=== PATIENT | female | born 1945 | race Asian ===

== ENCOUNTER 2018-11-27 06:12 | Day surgery (SDC) | payer OTHER ==
[~2018-11-27] VITALS: Ht 152.4 cm; Wt 54.1 kg
[~2018-11-27 06:12] MED LIST: AMLO-218 PO; ATOR-2 PO; CLOP75TA27 PO; LOSA100T3 PO
[2018-11-27 08:33] VITALS: Ht 152.4 cm; Wt 54.1 kg
[2018-11-27] MEDS ORDERED: tamsulosin PO (08:52)
[2018-11-27] MEDS ORDERED: gabapentin PO (08:52)
--- NOTE | 2018-11-27 09:11 | PREAC ---
Date/Time of Note Date/Time of Note DATE: 11/27/18 TIME: 09:09 Anesthesia Eval and Record Evaluation Time Pre-Procedure Interview DATE: 11/27/18 TIME: 09:09 Age 73 Sex female NPO: 8 hrs Preoperative diagnosis rectal bleeding Planned procedure colonoscopy Past Medical History Past Medical History: Includes Cardio: HTN Neuro: Other (aneurysms/p surgery) Surgery & Anesthesia Issues No known issue Meds Anticoagulation: No Beta Mehdi within 24 hr: No Reason Beta Mehdi not given: Pt. not on B-Mehdi Reported Medications [tamsulosin] No Conflict Check, PO DAILY 11/27/18 [gabapentin] No Conflict Check, PO DAILY 11/27/18 Amlodipine Besylate* (Norvasc*) 10 Mg Tablet, 10 MG PO DAILY, TAB 07/23/16 Losartan Potassium* (Cozaar*) 100 Mg Tablet, 100 MG PO DAILY, #30 TAB 07/23/16 Atorvastatin* (Atorvastatin*) 80 Mg Tablet, 80 MG PO QHS, #30 TAB 07/23/16 Discontinued Reported Medications Clopidogrel Bisulfate (Clopidogrel) 75 Mg Tablet, 75 MG PO DAILY, #30 TAB 07/23/16 Meds reviewed: Yes Allergies Coded Allergies: No Known Allergy (Unverified , 11/27/18) Allergies Reviewed: Yes Labs/Studies Labs Reviewed: Reviewed by anesthesiologist test: N/A Studies: ECG (sr), CXR (n/a) Pre-procedure Exam Airway: Adequate mouth opening Mallampati: Mallampati I Teeth: Abnormal (denture) Lung: Normal Heart: Normal ASA Physical Status ASA physical status: 2 Emergency: None Planned Anesthetic General/MAC: MAC Planned Pain Management Parenteral pain med Pre-operative Attestations Prior to commencing anesthesia and surgery, the patient was re-evaluated, there was verification of: *The patient's identity *The results of appropriate recent lab work and preoperative vital signs *The above evaluation not changing prior to induction *Anesthetic plan, risk benefits, alternative and complications discussed with patient/family; questions answered; patient/family understands, accepts and wishes to proceed. CATIE MELISSA MD Nov 27, 2018 09:11
[2018-11-27] MEDS ORDERED: FENTAnyl 50 MCG/ML VIAL ONE (09:13)
[2018-11-27] MEDS ORDERED: PROPOFOL 20 ML ONE (09:13)
[2018-11-27 09:28] VITALS: BP 166/72; PULSE 65; RESP 24
[2018-11-27] MEDS ORDERED: hydrALAzine 20 MG INJ IV PRN (09:30)
[2018-11-27] MEDS ORDERED: LABETALOL HCL 20MG INJ IV PRN (09:30)
[2018-11-27] MEDS ORDERED: ONDANSETRON 4 MG INJ IV PRN (09:30)
[2018-11-27 10:16] VITALS: BP 132/58; PULSE 58; RESP 12
--- NOTE | 2018-11-27 18:20 | PAC ---
Date/Time of Note Date/Time of Note DATE: 11/27/18 TIME: 18:20 Post-Anesthesia Notes Post-Anesthesia Note Last documented vital signs Vital Signs Date Temp Pulse Resp B/P (MAP) Pulse Ox O2 O2 Flow FiO2 Time Delivery Rate 11/27/18 97.5 58 12 132/58 100 Room Air 10:16 (82) 11/27/18 97.3 09:28 Activity: WNL Respiratory function: WNL Cardiovascular function: WNL Mental status: Baseline Pain reasonably controlled: Yes Hydration appropriate: Yes Nausea/Vomiting absent: No CATIE MELISSA MD Nov 27, 2018 18:20
== END 2018-11-27 11:05 | disposition home or self-care (01) ==
LOC: GIL 06:12
PROVIDERS: ATTEND Internal Medicine Gastroenterology
DX: K92.1 Melena (principal); D12.4 Benign neoplasm of descending colon; K64.8 Other hemorrhoids
CPT/HCPCS: 45385; 88305; J3010; Z7610

== ENCOUNTER 2019-07-07 17:08 | Emergency (ER) | payer OTHER ==
[~2019-07-07] VITALS: Ht 152.4 cm; Wt 54.0 kg
[~2019-07-07 17:08] MED LIST changes: +ACET325T33 PO; -CLOP75TA27 PO; +gabapentin PO; +tamsulosin PO
[2019-07-07 17:18] VITALS: Ht 152.4 cm; Wt 54.0 kg
[2019-07-07 19:26] VITALS: BP 146/72; PULSE 78; RESP 17
== END 2019-07-07 19:26 | disposition home or self-care (01) ==
LOC: FTE 17:08
DX: S51.812A Laceration without foreign body of left forearm, initial encounter (principal); I10 Essential (primary) hypertension; W26.8XXA Contact with other sharp object(s), not elsewhere classified, initial encounter; Y92.9 Unspecified place or not applicable
CPT/HCPCS: 12002; Z7502